=== PATIENT | female | born 1985 | race Hispanic/Latino ===

== ENCOUNTER 2020-08-06 08:38 | Outpatient (CLI) | payer SELFPAY ==
[2020-08-06 11:24] LABS: BHCG - Serum Negative (NEGATIVE)
[2020-08-06 11:25] LABS: Pregs Control Background? CLEAR/WHITE (CLR/WHITE); Pregs Control Bar Appear? YES (CONTROL BAR)
[2020-08-06 17:50] LABS: SARS-CoV-2 PCR by NAA Not Detected (NotDetected)
== END 2020-08-06 08:39 | disposition home or self-care (01) ==
LOC: CSHLAB 08:38
PROVIDERS: ATTEND Otolaryngology Plastic Surgery within the Head & Neck
DX: Z01.812 Encounter for preprocedural laboratory examination (principal); Z20.822 Contact with and (suspected) exposure to COVID-19; R49.0 Dysphonia; J38.3 Other diseases of vocal cords; J38.7 Other diseases of larynx
CPT/HCPCS: 84703; 85014; 87635; U0003; U0005

== ENCOUNTER 2020-08-11 05:51 | Day surgery (SDC) | payer OTHER ==
[2020-08-07 13:30] VITALS: BMI 29.9
[2020-08-11] MEDS ORDERED: SUGAMMADEX SODIUM 500 MG/5 ML VIAL ONE (06:31)
[2020-08-11] MEDS ORDERED: Lidocaine 4% Topical Sol 50 ML BOT ONE (06:31)
[2020-08-11] MEDS ORDERED: Lidocaine 1% MPF 2 ML VIAL ONE (07:42)
[2020-08-11] MEDS ORDERED: PROPOFOL 20 ML ONE (08:53)
[2020-08-11] MEDS ORDERED: PROPOFOL 40 ML ONE (08:53)
[2020-08-11] MEDS ORDERED: Fentanyl 100 MCG/2 ML VIAL ONE ×2 (08:54→10:59)
[2020-08-11] MEDS ORDERED: Dexamethasone 20 MG/5 ML VIAL ONE (08:54)
[2020-08-11] MEDS ORDERED: Midazolam HCl 2 mg/2 ml Vial ONE (08:54)
[2020-08-11] MEDS ORDERED: Ondansetron PF 4 MG/2 ML Vial ONE (08:54)
[2020-08-11] MEDS ORDERED: Ketamine 50 MG/ML (10ML VIAL) ONE (08:55)
[2020-08-11] MEDS ORDERED: Lidocaine 1% PF 5 ML VIAL ONE (08:56)
[2020-08-11] MEDS ORDERED: EPINEPHrine 1 MG/ML AMP ONE (08:58)
[2020-08-11] MEDS ORDERED: Glycopyrrolate 0.2 MG/ML 5 ML SYRINGE ONE (09:00)
== END 2020-08-11 11:55 | disposition home or self-care (01) ==
LOC: CSHSDC 05:51
PROVIDERS: ATTEND Otolaryngology Plastic Surgery within the Head & Neck
DX: R49.0 Dysphonia (principal); J38.3 Other diseases of vocal cords; J38.7 Other diseases of larynx
CPT/HCPCS: 88305; J0171; J1100; J2250; J2405; J2704; J3010